=== PATIENT | female | born 1940 | race Caucasian/White ===

== ENCOUNTER 2016-12-04 10:27 | Inpatient (IN) | payer OTHER, MEDICARE ==
[~2016-12-04] VITALS: Ht 165.1 cm; Wt 117.5 kg
[~2016-12-04 10:27] MED LIST: ULTR50TA PO; WALKER STANDARD
--- NOTE | 2016-12-20 06:54 | HHI.DCPOC ---
Discharge Care Plan Diagnosis: (1) Status post total hip replacement, right (2) Osteoarthritis of right hip Your Health Problems Are: Difficulty with ADL Goals to Promote Your Health * To prevent worsening of your condition and complications * To maintain your health at the optimal level Directions to Meet Your Goals Take your medications as prescribed Follow your dietary instruction Follow activity as directed Keep your appointments as scheduled Take your immunizations and boosters as scheduled If your symptoms worsen call your PCP, if no PCP go to Urgent Care Center or Emergency Room Smoking is Dangerous to Your Health. Avoid second hand smoke Call the 24-hour hour crisis hotline for domestic abuse at Jens Aquino December 20, 2016 06:54
--- NOTE | 2016-12-20 06:55 | HHI.FF ---
Face to Face Verification Diagnosis: (1) Osteoarthritis of right hip (2) Status post total hip replacement, right Physical Therapy Gait training, Transfer training, bed to chair Hip: Total hip Right LE Weight Bearing: WB as tolerated Right LE Range of Motion: Active ROM Nursing Nursing: Art teaching, Dressing changes Dressing Changes: Daily dressing change I have seen patient Opal Kumar on 12/20/16. My clinical findings support the need for the requested home health care services because: Limited ability to care for self High risk of falls I certify that my clinical findings support that this patient is homebound because: Post-op weakness Unsteady gait/balance Jens qAuino December 20, 2016 06:55
[2016-12-20] MEDS ORDERED: POVIDONE IODINE 5% (ANTISEPSIS KIT) 4 APPLICATIONS EACH NARE PRN (07:45)
[2016-12-20] MEDS ORDERED: INSULIN HUMAN REGULAR 1,000 UNITS/10 ML VIAL SQ PRN (07:45)
[2016-12-20] MEDS ORDERED: METOPROLOL TARTRATE 25 MG TAB PO PRN (07:45)
[2016-12-20] MEDS ORDERED: SODIUM CHLORID 0.9% 500 ML IV PRN (07:45)
[2016-12-20] MEDS ORDERED: LACTATED RINGER'S 1000 ML IV PRN (07:45)
[2016-12-20] MEDS ORDERED: CHLORHEXIDINE GLUCONATE 2 % 1 PACK (2 CLOTHS) TOPICAL PRN (07:45)
[2016-12-20] MEDS ORDERED: GENTAMICIN SULFATE 80 MG/2 ML VIAL ONE (08:01)
[2016-12-20] MEDS ORDERED: CALCTAB23 PO (08:03)
[2016-12-20] MEDS ORDERED: MULT-135 PO (08:03)
[2016-12-20] MEDS ORDERED: TRAM50TA PO (08:03)
[2016-12-20 08:07] VITALS: BP 146/65; PULSE 78; RESP 20; TEMP 97.9; O2SAT 99
[2016-12-20] MEDS ORDERED: SULF1TAB23 PO (08:25)
[2016-12-20] MEDS ORDERED: VANCOMYCIN 1000 MG/NS 250 ML (for <70 kg) IV SCH ×2 (08:30)
[2016-12-20] MEDS ORDERED: EXPAREL PERI-ARTICULAR INJECTION (TOTAL VOL. 60 ML) P-ARTICULR SCH ×2 (08:30)
[2016-12-20] MEDS ORDERED: SODIUM CHLORIDE 0.9% IV SCH ×2 (08:30→13:00)
[2016-12-20] MEDS ORDERED: DEXAMETHASONE INJ 10 MG in SODIUM CHLORIDE 0.9% INJ 50 ML IV ONE (08:30)
[2016-12-20] MEDS ORDERED: TRANEXAMIC ACID IV SCH ×2 (08:30→13:00)
[2016-12-20] MEDS ORDERED: POVIDONE IODINE 7.5% SCRUB 118 ML BOTTLE TOPICAL SCH (08:30)
[2016-12-20] MEDS ORDERED: ceFAZolin 2 GM PREMIX 50 ML IV SCH (09:15)
[2016-12-20] MEDS ORDERED: fentaNYL CITRATE 250 MCG/5 ML AMP ONE (09:54)
[2016-12-20] MEDS ORDERED: MIDAZOLAM HCL 2 MG/2 ML VIAL ONE (09:54)
[2016-12-20] MEDS ORDERED: ACETAMINOPHEN 1000 MG/100 ML VIAL IV ONE (09:54)
[2016-12-20] MEDS ORDERED: FAMOTIDINE 20 MG/2 ML VIAL ONE (09:55)
[2016-12-20] MEDS ORDERED: ceFAZolin INJ 1,000 MG VIAL IV ONE ×2 (10:58→11:05)
[2016-12-20] MEDS ORDERED: NEOSTIGMINE 3 MG/3 ML SYR IV ONE (12:07)
[2016-12-20] MEDS ORDERED: ePHEDrine/NS 25 MG/5 ML SYR IV ONE (12:07)
[2016-12-20] MEDS ORDERED: PROPOFOL 200 MG/20 ML AMP IV ONE (12:07)
[2016-12-20] MEDS ORDERED: LACTATED RINGER'S 1000 ML INJ 1,000 ML IV ONE (12:08)
[2016-12-20] MEDS ORDERED: PHENYLEPH/NS 1000 MCG/10 ML SYR IV ONE (12:08)
[2016-12-20] MEDS ORDERED: ONDANSETRON HCL 4 MG/2 ML VIAL IV PUSH ONE (12:08)
--- NOTE | 2016-12-20 12:09 | PD.OP ---
cc: Gene Foster MD Operative Report Date of Surgery: December 20, 2016 Preoperative Diagnosis: Right hip severe osteoarthritis Postoperative Diagnosis: Same Procedure: Right total hip arthroplasty Anesthesia: Gen. Surgeon: Gene Foster Shactor Helper(s): TERRENCE De La Rosa The surgical procedure was assisted by my Advanced Registered Nurse Practitioner. My MIS DIRECTOR presence was necessary throughout this case for the manipulation and positioning of the surgical extremity. My MIS DIRECTOR was assisting me throughout the duration of this procedure. The skill set of an Advance Registered Nurse Practitioner was medically necessary to complete this procedure. During the surgical case, the surgical services tech was working at the back table and the Advance Registered Nurse Practitioner was directly assisting me. Operation and Findings: IMPLANT DESCRIPTION: 1. [place] Gription Cup, acetabular size 48. 2. [place] AltrX polyethylene, neutral. 4. [place] femoral stem size 11, no collar, high offset. 5. Femoral head/neck metal, 32, +1. ESTIMATED BLOOD LOSS: 350 cc. JUSTIFICATION FOR PROCEDURE: The patient has end-stage osteoarthritis to the hip. There is an attached conservative measures pathway form in the chart that describes the nonoperative measures that were undertaken prior to consideration of surgical management. The patient understood the risks and benefits of surgical management. See my office notes for further details. PROCEDURE: The patient was brought back to the operative theatre. Adequate anesthesia was obtained. The patient received intravenous vancomycin and Ancef. Note that the anesthesiologist gave a test dose of Ancef prior to giving the full dose. The patient was carefully placed on the operative table. The lower extremity was prepped and draped in the usual sterile fashion. Fluoroscopic images were obtained. We made a standard anterior incision over the hip. We dissected through the TFL fascia, exposing the anterior capsule. Arthrotomy was performed in a T-shaped fashion. The capsule was tagged with a #2 FiberWire. End-stage arthritis was identified. Osteotomy was performed through the femoral neck exposing the acetabulum. Remnants of the labrum were resected and osteophytes were removed. We sequentially reamed the acetabulum. We trialed the hip and placed the final cup into position. This was done under fluoroscopic guidance to obtain the appropriate inclination and anteversion. A manhole cover was placed into the acetabular component. We then placed the final polyethylene into position and confirmed that it was well seated. Capsular attachments on the calcar and the inner aspect of the greater trochanter were resected. On the proximal aspect of the femur we used a rongeur , box osteotome, canal finder, sequential broaches and lateralizing rasp. We calcar planed the proximal femur. Then thoroughly irrigated the wound. We trialed the hip with the appropriate size stem. We placed the final stem in to position and trialed again. The hip was stable while it was externally rotated 70 degrees when the leg was lowered to the floor. The final head was applied, and final fluoroscopic images were obtained. The wound was thoroughly irrigated again. Interarticular injection of liposomal bupivacaine was given. The capsule was closed with #2 FiberWire and #1 Vicryl. The deep fascia was closed with a #2 Stratafix, followed by 2-0 Vicryl in the skin and courtney. Postop plan is to weight-bear as tolerated. DVT prophylaxis will be performed with Nini, THONY lopez, early mobilization, and Lovenox followed by aspirin. Gene Foster MD December 20, 2016 12:09
[2016-12-20] MEDS ORDERED: ENOX40P SQ (12:10)
[2016-12-20] MEDS ORDERED: ASPI325T PO (12:10)
[2016-12-20] MEDS ORDERED: HYDR-3288 PO (12:10)
[2016-12-20] MEDS ORDERED: ALUMINUM/MAGNESIUM/SIMETH 30 ML CUP PO PRN (12:15)
[2016-12-20] MEDS ORDERED: MORPHINE SULFATE 4 MG/ML INJ IV PUSH PRN (12:15)
[2016-12-20] MEDS ORDERED: ZOLPIDEM TARTRATE 5 MG TAB PO PRN (12:15)
[2016-12-20] MEDS ORDERED: SODIUM CHLORIDE 0.9% FLUSH 5 ML FLUSH IVF PRN (12:15)
[2016-12-20] MEDS ORDERED: diphenhydrAMINE HCL 50 MG/ML VIAL IV PRN (12:15)
[2016-12-20] MEDS ORDERED: ACETAMINOPHEN/HYDROcodone 325 MG/7.5 MG TAB PO PRN (12:15)
[2016-12-20] MEDS ORDERED: BISACODYL 10 MG SUPP RECTAL PRN (12:15)
[2016-12-20] MEDS ORDERED: ONDANSETRON HCL 4 MG/2 ML VIAL IVP PRN (12:15)
[2016-12-20] MEDS ORDERED: Post-op Orders (for Pharmacy) MISC XX ONE (12:30)
--- NOTE | 2016-12-20 12:31 | RADRPT ---
EXAM DATE/TIME: 12/20/2016 10:46 [facility] COMPARISON: No previous studies available for comparison. INDICATIONS : Post-op total right hip arthroplasty. MEDICAL HISTORY : None. SURGICAL HISTORY : None. ENCOUNTER: Initial ACUITY: 1 day PAIN SCORE: Non-responsive. LOCATION: Right hip. FINDINGS: 3 spot intraoperative fluoroscopic views of the right hip demonstrate a total hip arthroplasty. Femor al and acetabular components appear well seated. CONCLUSION: Postoperative changes right hip. Zay Epstein MD on December 20, 2016 at 12:29 Board Certified Radiologist. This report was verified electronically.
[2016-12-20] MEDS ORDERED: *morphine SULFATE 8 MG/ML PERIprocedure ONLY ONE ×3 (12:45→13:06)
[2016-12-20] MEDS: SODIUM CHLOR 0.9% 1000 ML INJ 1,000 ML IV SCH ×2 (13:00→22:05)
[2016-12-20] MEDS ORDERED: *HYDROmorphone PF 1 MG VIAL PERIprocedural Use ONLY ONE ×2 (13:15→13:25)
--- NOTE | 2016-12-20 13:32 | RADRPT ---
EXAM DATE/TIME: 12/20/2016 12:46 [facility] COMPARISON: HIP RIGHT (AP&LAT 2/3VWS) WO AP PELVIS, December 20, 2016, 10:46. INDICATIONS : Post op right hip replacement. MEDICAL HISTORY : None. SURGICAL HISTORY : None. ENCOUNTER: Initial ACUITY: 1 day PAIN SCORE: Non-responsive. LOCATION: Right hip. FINDINGS: The patient is status post right total hip arthroplasty. The femoral and acetabular components appear well-seated. Skin courtney are present along the right hip. Minimal subcutaneous emphysema is seen. N o fractures are identified. Mild narrowing of the left hip. CONCLUSION: Postop right hip arthroplasty. Zay Epstein MD on December 20, 2016 at 13:29 Board Certified Radiologist. This report was verified electronically.
[2016-12-20] MEDS: NALOXONE HCL 0.4 MG/ML AMP IV PRN ×2 (13:55→14:24)
[2016-12-20 15:03] LABS: HEMATOCRIT 32.8 % (35.0-46.0); REVIEW FLAG FINAL
[2016-12-20] MEDS ORDERED: LACTATED RINGER'S 1000 ML INJ 500 ML IV ONE (15:15)
--- NOTE | 2016-12-20 17:44 | PD.CONS ---
HPI Service [facility] Hospitalists Consult Requested By Dr. Gene Foster Reason for Consult Medical management Primary Care Physician Meme Marte Do, MD Diagnoses: (1) Osteoarthritis of right hip (2) Status post total hip replacement, right History of Present Illness Mrs. Kumar is a 76-year-old female with a known medical history of asthma, chronic obstructive pulmonary disease, obstructive sleep apnea who is status post total right hip arthroplasty today by Dr. Foster. Hospitalist team has been consulted for medical management. Patient seen post operatively in PACU. Per medical records and MECHANICAL ENGINEERING TECHNOLOGIST, patient has had a difficult time in the past with hypotension with anesthesia. Supposedly patient had arrived to PACU in severe pain and was given ordered narcotics became unarousable and then given Narcan. Patient currently awake, alert and oriented x 3 and following all commands in no apparent distress. States that pain is relatively controlled. Does admit to some dizziness since waking up from anesthesia. At this time patient BP is relatively stable with systolic 100's. O2 saturations on 3 L NC 98 %. Per MECHANICAL ENGINEERING TECHNOLOGIST, she has noticed some decrease in HR to 47 bpm while patient is sleeping but increases upon awakening and patient asymptomatic. Patient does admit to a history of obstructive sleep apnea but is noncompliant with home CPAP. Denies any recent fever, chills, cough, shortness of breath, chest pain, palpitations, abdominal pain, n/v or dysuria. Review of Systems Constitutional: COMPLAINS OF: Dizziness Except as stated in HPI: all other systems reviewed are Neg Past Family Social History Allergies: Coded Allergies: Penicillin (Verified Allergy, Severe, rash, 12/20/16) Demerol (Verified Adverse Reaction, Severe, NAUSEA, 12/20/16) Past Medical History Asthma Chronic Obstructive pulmonary disease Obstructive sleep apnea, noncompliant with CPAP at home Past Surgical History Tubal ligation Left knee replacement Hysterectomy Reported Medications Active Aspirin 325 Mg Tab 325 Mg PO DAILY Start Aspirin after Lovenox is completed. Lovenox Inj (Enoxaparin Sodium) 40 Mg/0.4 Ml Syr 40 Mg SQ DAILY Start Aspirin after Lovenox is completed. [place] (Hydrocodone-Acetaminophen) 7.5-325 mg Tab 1-2 Tab PO Q4H PRN Reported Sulfamethoxazole-Trimethoprim 800-160 Mg Tab 1 Tab PO BID Calcium 500 + D (Calcium Carbonate-Vitamin D) 500-125 Mg-Unit Tab 1 Tab PO BID Multi Vitamin (Multiple Vitamin) 1 Tab Tab 1 Tab PO DAILY Tramadol (Tramadol HCl) 50 Mg Tab 50 Mg PO Q4H PRN Active Ordered Medications Current Medications Medications (Trade) Dose Ordered Sig/Salomon Route Start Time Stop Time Status Last Admin Lactated Ringer's 1,000 ml @ 30 mls/hr Q24H PRN IV 12/20/16 07:45 12/23/16 07:44 12/20/16 08:00 (NS 500 ml Inj) 500 ml @ 30 mls/hr [id number] PRN IV 12/20/16 07:45 12/23/16 07:44 (Betadine 7.5% Scrub) 1 applic ONCE TOPICAL 12/20/16 08:30 12/23/16 08:29 Trimethoprim/ Sulfamethoxazole 1 tab 1 tab BID PO 12/20/16 21:00 (NS 1000 ml Inj) 1,000 ml @ 100 mls/hr Q10H IV 12/20/16 12:05 (NS Flush) 2 ml UNSCH PRN IVF 12/20/16 12:15 IV Flush 2 ml 2 ml BID IVF 12/20/16 21:00 (Ancef Inj/NS Inj) 100 ml @ 200 mls/hr Q6H IV 12/20/16 17:00 12/21/16 05:29 (Decadron Inj) 10 mg ONCE ONCE IV 12/21/16 07:45 12/21/16 07:46 (Lovenox Inj) 40 mg Q24H SQ 12/21/16 11:00 12/30/16 11:01 ([place] 7.5-325 Mg) 1 tab Q4H PRN PO 12/20/16 12:15 Acetaminophen/ Hydrocodone Bitart 2 tab 2 tab Q4H PRN PO 12/20/16 12:15 (Cyklokapron Inj/ NS Inj) 108.06 ml @ 200 mls/ hr UNSCH IV 12/20/16 13:00 12/20/16 19:00 (Theragran M Tab) 1 tab BID PO 12/21/16 21:00 02/19/17 20:59 (Zofran Inj) 4 mg Q6H PRN IVP 12/20/16 12:15 (Colace) 100 mg BID PO 12/21/16 21:00 (Mag-Al Plus Susp Liq) 30 ml Q6H PRN PO 12/20/16 12:15 (Ambien) 5 mg HS PRN PO 12/20/16 12:15 (Dulcolax Supp) 10 mg DAILY PRN RECTAL 12/20/16 12:15 (Milk Of Magnesia Liq) 30 ml DAILY PRN PO 12/20/16 12:15 (Narcan Inj) 0.4 mg UNSCH PRN IV 12/20/16 12:15 (Benadryl Inj) 25 mg Q6H PRN IV 12/20/16 12:15 (Morphine Inj) 2 mg Q3H PRN IV PUSH 12/20/16 12:15 Family History Paternal medical history significant for emphysema with tobacco history. Maternal medical history significant for diabetes mellitus. Social History Patient denies any current tobacco use, does admit to a 20 year smoking history but quit many years ago. Denies any alcohol use. Denies any illicit drug use. Physical Exam Vital Signs Vital Signs Date Time Temp Pulse Resp B/P Pulse Ox O2 Delivery O2 Flow Rate FiO2 12/20/16 14:00 71 15 93/46 99 Nasal Cannula 3 12/20/16 13:55 57 12 99/43 99 Nasal Cannula 3 12/20/16 13:50 61 12 94/42 99 Nasal Cannula 3 12/20/16 13:48 51 14 79/37 100 Nasal Cannula 3 12/20/16 13:45 72 14 84/40 99 Nasal Cannula 3 12/20/16 13:30 60 15 110/49 100 Nasal Cannula 3 12/20/16 13:15 57 15 130/59 100 Nasal Cannula 3 12/20/16 13:00 77 15 128/63 100 Nasal Cannula 3 12/20/16 12:45 73 15 127/59 100 Nasal Cannula 3 12/20/16 12:37 96.9 75 15 129/60 100 Nasal Cannula 3 12/20/16 08:07 97.9 78 20 146/65 99 Physical Exam GENERAL: Well-nourished, well-developed patient, in no apparent distress. SKIN: No rashes, ecchymoses or lesions. Warm and dry. Post op dressing to left hip clean, dry, intact. No erythema noted around area. Pulses present. HEENT: Atraumatic. Normocephalic. Pupils equal round and reactive. Extraocular motions intact. No scleral icterus. No injection or drainage. Nose without bleeding Throat without erythema Airway patent. NECK: Trachea midline. No JVD or lymphadenopathy. Supple. CARDIOVASCULAR: Regular rate and rhythm without murmurs, gallops, or rubs. RESPIRATORY: Clear to auscultation. Breath sounds equal bilaterally. No wheezes , rales, or rhonchi. GASTROINTESTINAL: Abdomen soft, non-tender, nondistended. No guarding. MUSCULOSKELETAL: Left hip with dressing c/d/i. Extremities without clubbing, cyanosis, or edema. No joint tenderness, effusion, or edema noted. No calf tenderness. Negative Homans sign bilaterally. NEUROLOGICAL: Awake and alert. Cranial nerves II through XII intact. Motor and sensory grossly within normal limits. Normal speech. Laboratory Laboratory Tests Test 12/20/16 12/20/16 07:55 14:40 Blood Type A POSITIVE Antibody Screen NEGATIVE Hemoglobin 10.7 Hematocrit 32.8 Result Diagram: 12/20/16 1440 Imaging Last Impressions Hip and Pelvis X-Ray 12/20/16 1205 Signed Impressions: Service Date/Time: Tuesday, December 20, 2016 12:46 - CONCLUSION: Postop right hip arthroplasty. Zay Epstein MD Hip X-Ray 12/20/16 0000 Signed Impressions: Service Date/Time: Tuesday, December 20, 2016 10:46 - CONCLUSION: Postoperative changes right hip. Zay Epstein MD Assessment and Plan Assessment and Plan Mrs. Kumar is a 76-year-old female with a known medical history of asthma, chronic obstructive pulmonary disease, obstructive sleep apnea who is status post total right hip arthroplasty today by Dr. Foster. Hospitalist team has been consulted for medical management. OA of left hip Hypotension, immediately post surgical, 2/2 IV pain meds. Received total of 1.5 L NS. VS stable at this time. Resolved with IVF. Monitor bP . Keep MAP> 65. Acute encephalopathy 2/2 use of narcotic pain meds, received narcan. Resolved with narcan. Close observation wile on narcotic . DC IV pain meds. - Status post left total hip arthroplasty on 12/20/[address] Foster ortho - Control pain. Patient very sensitive to narcotics. Nursing staff please be advised. [place] available PO PRN per pain scale. Monitor closely. Will hold IV pain medication for now due to sensitivity, her BP dropped after IV pain meds, and she was noted altered mental status. She did receive 1.5 L NS, BP currently normal, and MAP of 70. Keep MAP > 65. She also received narcan while in PACU. She appears stable at this time. Can be transferred to ortho floor. She is awake and alert and oriented x4 at this time. Monitor VS closely. - Antiemetics, laxative/stool softeners as need. - Encourage PO intake as tolerated. - Encourage use of incentive spirometer. - Dressing change per surgery recommendations. Dizziness 2/2 hypotension / narcotic use IV - Monitor closely. No signs or symptoms of bleedings. H&H 10.7. CBC in am. - Control BP. Status post 1.5 L fluids post operatively. Continue IVF NS 100 ml/hr. - Adequate amount of clear yellow urine reported post op. Monitor UOP. Obstructive sleep apnea - Asked patient to have family bring in machine from home while hospitalized , until then will request CPAP machine while patient here, currently sattign well on NC.Monitor VS. Keep O2 sat > 92%. Other chronic medical problems include chronic obstructive pulmonary disease and asthma which are currently stable. Home medications restarted as indicated. DVT Prophylaxis: Lovenox 40 mg sq daily. Thank you for this consultation. We will follow with you. Written by Yuly Marley, acting as scribe for Dr. Parsons on 12/20/16 at 17:43. This note was transcribed by scribe Yuly OCONNOR. I, Dr. Earnestine Parsons personally performed the history, physical exam, and medical decision making; and confirmed the accuracy of the information in the transcribed note. Authenticated by Dr. Earnestine Parsons on 12/20/16 at 17:43. Yuly Marley December 20, 2016 17:44 Earnestine Parsons MD December 20, 2016 21:23
[2016-12-20] MEDS ORDERED: *ONDANSETRON 4 MG VIAL PERIprocedural Use ONLY ONE (17:46)
[2016-12-20 18:35] VITALS: BP 98/47; PULSE 53; RESP 18; TEMP 95.4; O2SAT 100
[2016-12-20 20:20] VITALS: BP 103/53; PULSE 54; RESP 16; TEMP 95.7; O2SAT 99
[2016-12-20] MEDS: SODIUM CHLORIDE 0.9% FLUSH 5 ML FLUSH IVF SCH (20:44)
[2016-12-20] MEDS: SULFAMETHOXAZOLE-TRIMETHOPRIM DS 800-160 MG TAB PO SCH (20:51)
[2016-12-20] MEDS ORDERED: SODIUM CHLOR 0.9% 1000 ML INJ 1,000 ML IV ONE (21:30)
[2016-12-20] MEDS: ACETAMINOPHEN/HYDROcodone 325 MG/7.5 MG TAB PO PRN (23:02)
[2016-12-21] VITALS (10 sets, daily range): BP systolic 90–119; BP diastolic 47–83; PULSE 56–80; RESP 16–18; TEMP 95.8–98.5; O2SAT 92–100
[2016-12-21] MEDS: SODIUM CHLOR 0.9% 1000 ML INJ 1,000 ML IV SCH ×2 (04:15→16:52)
[2016-12-21 06:25] LABS: HEMATOCRIT 28.3 % (35.0-46.0); MEAN CELL VOLUME 91.1 FL (80.0-100.0); MEAN CORPUSCULAR HEMOGLOBIN 30.2 PG (27.0-34.0); MEAN CORPUSCULAR HGB CONC 33.2 % (32.0-36.0); PLATELET COUNT 121 TH/MM3 (150-450); RED CELL DISTRIBUTION WIDTH 13.7 % (11.6-17.2); REVIEW FLAG FINAL; WHITE BLOOD COUNT 7.5 TH/MM3 (4.0-11.0)
[2016-12-21 06:38] LABS: BICARBONATE 22.8 MEQ/L (21.0-32.0); POTASSIUM 4.7 MEQ/L (3.5-5.1)
[2016-12-21 06:57] LABS: CALCIUM-PROTEIN CORRECTED 8.7 MG/DL (8.5-10.1)
[2016-12-21] MEDS ORDERED: DEXAMETHASONE SOD PHOS 20 MG/5 ML VIAL IV ONE (07:45)
[2016-12-21] MEDS: SODIUM CHLORIDE 0.9% FLUSH 5 ML FLUSH IVF SCH ×2 (08:01→21:10)
[2016-12-21] MEDS: SULFAMETHOXAZOLE-TRIMETHOPRIM DS 800-160 MG TAB PO SCH ×2 (08:01→21:09)
[2016-12-21] MEDS: ENOXAPARIN SODIUM 40 MG/0.4 ML SYRINGE SQ SCH (11:31)
--- NOTE | 2016-12-21 11:55 | PD.ORT.PN ---
Subjective Post Op Day #: 1 Subjective Remarks The patient is OOB in chair with mild to moderate right hip pain. Patient is voiding and is ambulatory. Objective Vitals Vital Signs Date Time Temp Pulse Resp B/P Pulse Ox O2 Delivery O2 Flow Rate FiO2 12/21/16 08:00 97.7 61 18 97 98/55 12/21/16 05:30 98.4 12/21/16 04:20 96.8 73 16 103/51 98 12/21/16 04:20 96.2 12/21/16 01:35 96.1 90/47 12/21/16 00:20 95.8 56 16 97/50 100 12/21/16 00:03 18 12/20/16 20:20 95.7 54 16 103/53 99 12/20/16 18:35 95.4 53 18 98/47 100 12/20/16 18:30 96.0 53 15 104/52 97 Nasal Cannula 3 12/20/16 18:00 53 17 108/58 98 Nasal Cannula 3 12/20/16 17:30 53 15 98/62 98 Nasal Cannula 3 12/20/16 17:00 53 15 107/58 97 Nasal Cannula 3 12/20/16 16:30 54 17 99/54 97 Nasal Cannula 3 12/20/16 16:00 55 17 103/58 97 Nasal Cannula 3 12/20/16 15:30 59 17 94/50 97 Nasal Cannula 3 12/20/16 15:00 54 15 98/58 97 Nasal Cannula 3 12/20/16 14:45 54 15 100/64 100 Nasal Cannula 3 12/20/16 14:30 73 15 90/53 100 Nasal Cannula 3 12/20/16 14:15 97.8 55 15 98/54 100 Nasal Cannula 3 12/20/16 14:00 71 15 93/46 99 Nasal Cannula 3 12/20/16 13:55 57 12 99/43 99 Nasal Cannula 3 12/20/16 13:50 61 12 94/42 99 Nasal Cannula 3 12/20/16 13:48 51 14 79/37 100 Nasal Cannula 3 12/20/16 13:45 72 14 84/40 99 Nasal Cannula 3 12/20/16 13:30 60 15 110/49 100 Nasal Cannula 3 12/20/16 13:15 57 15 130/59 100 Nasal Cannula 3 12/20/16 13:00 77 15 128/63 100 Nasal Cannula 3 12/20/16 12:45 73 15 127/59 100 Nasal Cannula 3 12/20/16 12:37 96.9 75 15 129/60 100 Nasal Cannula 3 I/O 12/20/16 12/20/16 12/20/16 12/21/16 12/21/16 12/21/16 07:00 15:00 23:00 07:00 15:00 23:00 Intake Total 1200 ml 1740 ml 920 ml Output Total 600 ml 475 ml 300 ml 150 ml Balance 600 ml 1265 ml 620 ml -150 ml Intake Oral 240 ml 120 ml IV Total 1500 ml 800 ml Other 1200 ml Output Urine Total 300 ml 475 ml 300 ml 150 ml Estimated Blood Loss 300 ml # Bowel Movements 0 0 Result Diagram: 12/21/16 0537 12/21/16 0537 Imaging Last 24 hours Impressions Hip and Pelvis X-Ray 12/20/16 1205 Signed Impressions: Service Date/Time: Tuesday, December 20, 2016 12:46 - CONCLUSION: Postop right hip arthroplasty. Zay Epstein MD Procedures Right JUAN C Objective Remarks The patient's dressings changed with scant serosanguineous drainage. Incision well approximated with surgical clips intact. No redness or s/s of infection. EHL/TA/G intact. 2+ pedal pulse. Calf is soft and nontender. Minimal swelling. + SILT. Assessment & Plan Ortho Post Op Day #: 1 Problem List: Assessment and Plan POD #1: Right JUAN C 1. WBAT RLE 2. Lovenox followed by ASA for DVT prophylaxis 3. Ice to the right hip PRN 4. Anticipatory discharge home with home health today or Sunday Jens Aquino December 21, 2016 11:55
[2016-12-21] MEDS: ACETAMINOPHEN/HYDROcodone 325 MG/7.5 MG TAB PO PRN ×2 (13:31→21:09)
--- NOTE | 2016-12-21 13:57 | HHI.PR ---
Subjective Remarks Follow-up total hip arthroplasty and anemia. Patient is out of bed complaining of tolerable hip pain. 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 Discussed with RN. Objective Vitals Vital Signs Date Time Temp Pulse Resp B/P Pulse Ox O2 Delivery O2 Flow Rate FiO2 12/21/16 08:00 97.7 61 18 97 98/55 12/21/16 05:30 98.4 12/21/16 04:20 96.8 73 16 103/51 98 12/21/16 04:20 96.2 12/21/16 01:35 96.1 90/47 12/21/16 00:20 95.8 56 16 97/50 100 12/21/16 00:03 18 12/20/16 20:20 95.7 54 16 103/53 99 12/20/16 18:35 95.4 53 18 98/47 100 12/20/16 18:30 96.0 53 15 104/52 97 Nasal Cannula 3 12/20/16 18:00 53 17 108/58 98 Nasal Cannula 3 12/20/16 17:30 53 15 98/62 98 Nasal Cannula 3 12/20/16 17:00 53 15 107/58 97 Nasal Cannula 3 12/20/16 16:30 54 17 99/54 97 Nasal Cannula 3 12/20/16 16:00 55 17 103/58 97 Nasal Cannula 3 12/20/16 15:30 59 17 94/50 97 Nasal Cannula 3 12/20/16 15:00 54 15 98/58 97 Nasal Cannula 3 12/20/16 14:45 54 15 100/64 100 Nasal Cannula 3 12/20/16 14:30 73 15 90/53 100 Nasal Cannula 3 12/20/16 14:15 97.8 55 15 98/54 100 Nasal Cannula 3 12/20/16 14:00 71 15 93/46 99 Nasal Cannula 3 I/O 12/20/16 12/20/16 12/20/16 12/21/16 12/21/16 12/21/16 07:00 15:00 23:00 07:00 15:00 23:00 Intake Total 1200 ml 1740 ml 920 ml Output Total 600 ml 475 ml 300 ml 150 ml Balance 600 ml 1265 ml 620 ml -150 ml Intake Oral 240 ml 120 ml IV Total 1500 ml 800 ml Other 1200 ml Output Urine Total 300 ml 475 ml 300 ml 150 ml Estimated Blood Loss 300 ml # Bowel Movements 0 0 Result Diagram: 12/21/16 0537 12/21/16 0537 Imaging Last Impressions Hip and Pelvis X-Ray 12/20/16 1205 Signed Impressions: Service Date/Time: Tuesday, December 20, 2016 12:46 - CONCLUSION: Postop right hip arthroplasty. Zay Epstein MD Hip X-Ray 12/20/16 0000 Signed Impressions: Service Date/Time: Tuesday, December 20, 2016 10:46 - CONCLUSION: Postoperative changes right hip. Zay Epstein MD Objective Remarks GENERAL: Well-nourished, well-developed patient, in no apparent distress. SKIN: No rashes, ecchymoses or lesions. Warm and dry. Post op dressing to hip clean, dry, intact. No erythema noted around area. Pulses present. HEENT: Atraumatic. Normocephalic. Pupils equal round and reactive. Extraocular motions intact. No scleral icterus. No injection or drainage. Nose without bleeding Throat without erythema Airway patent. NECK: Trachea midline. No JVD or lymphadenopathy. Supple. CARDIOVASCULAR: Regular rate and rhythm without murmurs, gallops, or rubs. RESPIRATORY: Clear to auscultation. Breath sounds equal bilaterally. No wheezes , rales, or rhonchi. GASTROINTESTINAL: Abdomen soft, non-tender, nondistended. No guarding. MUSCULOSKELETAL: Left hip with dressing c/d/i. Extremities without clubbing, cyanosis, or edema. No joint tenderness, effusion, or edema noted. No calf tenderness. Negative Homans sign bilaterally. NEUROLOGICAL: Awake and alert. Cranial nerves II through XII intact. Motor and sensory grossly within normal limits. Normal speech. A/P Problem List: (1) Osteoarthritis of right hip ICD Code: M16.11 Status: Acute (2) Status post total hip replacement, right ICD Code: Z96.641 Status: Acute Assessment and Plan Mrs. Kumar is a 76-year-old female with a known medical history of asthma, chronic obstructive pulmonary disease, obstructive sleep apnea who is status post total right hip arthroplasty today by Dr. Foster. Hospitalist team has been consulted for medical management. OA of left hip Hypotension, immediately post surgical, 2/2 IV pain meds. Received total of 1.5 L NS. VS stable at this time. Resolved with IVF. Monitor bP . Keep MAP> 65. Hx indicated Acute encephalopathy 2/2 use of narcotic pain meds, received narcan. Resolved with narcan. Close observation wile on narcotic . DC IV pain meds. - Status post left total hip arthroplasty on 12/20/[address] Foster ortho - Control pain. Patient very sensitive to narcotics. Nursing staff advised. [place] available PO PRN per pain scale which she is tolerating. Monitor closely. Will hold IV pain medication for now due to sensitivity, her BP dropped after IV pain meds, and she was noted altered mental status. She did receive 1.5 L NS , BP currently normal, and MAP of 70. Keep MAP > 65. She also received narcan while in PACU. She appears stable at this time. She is awake and alert and oriented x4 at this time. Monitor VS closely. - Antiemetics, laxative/stool softeners as need. - Encourage PO intake as tolerated. - Encourage use of incentive spirometer. - Dressing change per surgery recommendations. Dizziness 2/2 hypotension / narcotic use IV - Monitor closely. No signs or symptoms of bleedings. H&H 9.4. CBC in am. - Control BP. Status post 1.5 L fluids post operatively. Continue IVF NS 100 ml/hr. - Adequate amount of clear yellow urine reported post op. Monitor UOP. Anemia secondary to blood loss. Repeat CBC in the morning Mild thrombocytopenia likely secondary to dilution. Repeat. Currently the morning Hyperglycemia. Obtain A1c. Obstructive sleep apnea -Stable continue CPAP Keep O2 sat > 92%. Other chronic medical problems include chronic obstructive pulmonary disease and asthma which are currently stable. Home medications restarted as indicated. DVT Prophylaxis: Lovenox 40 mg sq daily. Discharge Planning Discharge per orthopedic surgery Zak Landin MD December 21, 2016 13:57 - Antiemetics, laxative/stool softeners as need. - Encourage PO intake as tolerated. - Encourage use of incentive spirometer. - Dressing change per surgery recommendations. Dizziness 2/2 hypotension / narcotic use IV - Monitor closely. No signs or symptoms of bleedings. H&H 10.7. CBC in am. - Control BP. Status post 1.5 L fluids post operatively. Continue IVF NS 100 ml/hr. - Adequate amount of clear yellow urine reported post op. Monitor UOP. Obstructive sleep apnea - Asked patient to have family bring in machine from home while hospitalized , until then will request CPAP machine while patient here, currently sattign well on NC.Monitor VS. Keep O2 sat > 92%. Other chronic medical problems include chronic obstructive pulmonary disease and asthma which are currently stable. Home medications restarted as indicated. DVT Prophylaxis: Lovenox 40 mg sq daily. A/P Problem List: (1) Osteoarthritis of right hip ICD Code: M16.11 Status: Acute (2) Status post total hip replacement, right ICD Code: Z96.641 Status: Acute Zak Landin MD December 21, 2016 13:57
[2016-12-21] MEDS: MAGNESIUM HYDROXIDE SUSP 30 ML CUP PO PRN (16:43)
[2016-12-21 21:06] LABS: HEMOGLOBIN A1b 0.7 %; HEMOGLOBIN Ao 86.3 %; HEMOGLOBIN F 0.9 %; HEMOGLOBIN LA1C 1.9 %; HEMOGLOBIN P3 4.9 %
[2016-12-21] MEDS: DOCUSATE SODIUM 100 MG CAP PO SCH (21:09)
[2016-12-21] MEDS: MULTIVITAMINS/MINERALS THERAPEUTIC TAB PO SCH (21:09)
[2016-12-22] VITALS: BP 105/53; PULSE 63; RESP 17; TEMP 98.2; O2SAT 92
[2016-12-22] MEDS: SODIUM CHLOR 0.9% 1000 ML INJ 1,000 ML IV SCH ×2 (00:52→14:05)
[2016-12-22 04:00] VITALS: BP 102/50; PULSE 65; RESP 17; TEMP 97.5; O2SAT 92
[2016-12-22] MEDS: ACETAMINOPHEN/HYDROcodone 325 MG/7.5 MG TAB PO PRN ×3 (05:01→16:22)
[2016-12-22 08:00] VITALS: BP 122/50; PULSE 67; RESP 18; TEMP 97.4; O2SAT 94
[2016-12-22 08:03] LABS: HEMATOCRIT 27.7 % (35.0-46.0); MEAN CELL VOLUME 90.9 FL (80.0-100.0); MEAN CORPUSCULAR HEMOGLOBIN 30.4 PG (27.0-34.0); MEAN CORPUSCULAR HGB CONC 33.4 % (32.0-36.0); PLATELET COUNT 110 TH/MM3 (150-450); RED BLOOD COUNT 3.05 MIL/MM3 (4.00-5.30); RED CELL DISTRIBUTION WIDTH 13.6 % (11.6-17.2); REVIEW FLAG FINAL; WHITE BLOOD COUNT 6.3 TH/MM3 (4.0-11.0)
[2016-12-22] MEDS: DOCUSATE SODIUM 100 MG CAP PO SCH (08:31)
[2016-12-22] MEDS: SULFAMETHOXAZOLE-TRIMETHOPRIM DS 800-160 MG TAB PO SCH (08:31)
[2016-12-22] MEDS: SODIUM CHLORIDE 0.9% FLUSH 5 ML FLUSH IVF SCH (08:32)
[2016-12-22] MEDS: MAGNESIUM HYDROXIDE SUSP 30 ML CUP PO PRN (08:32)
[2016-12-22] MEDS: MULTIVITAMINS/MINERALS THERAPEUTIC TAB PO SCH (08:32)
[2016-12-22] MEDS: ENOXAPARIN SODIUM 40 MG/0.4 ML SYRINGE SQ SCH (10:00)
[2016-12-22 12:00] VITALS: BP 117/51; PULSE 77; RESP 18; TEMP 97.5; O2SAT 93
[2016-12-22] MEDS ORDERED: LACTULOSE SYRUP 20 GM/30 ML CUP PO PRN (12:00)
[2016-12-22 12:15] VITALS: O2SAT 94
--- NOTE | 2016-12-22 14:43 | HHI.DS ---
Discharge Summary Admission Date December 20, 2016 at 06:37 Discharge Date: December 22, 2016 Admitting Diagnosis OA right hip status post (1) Osteoarthritis of right hip ICD Code: M16.11 (2) Status post total hip replacement, right ICD Code: Z96.641 Procedures right total hip replacement Brief History - From Admission Mrs. Kumar is a 76-year-old female with a known medical history of asthma, chronic obstructive pulmonary disease, obstructive sleep apnea who is status post total right hip arthroplasty today by Dr. Foster. Hospitalist team has been consulted for medical management. Patient seen post operatively in PACU. 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 Supposedly patient had arrived to PACU in severe pain and was given ordered narcotics became unarousable and then given Narcan. Patient currently awake, alert and oriented x 3 and following all commands in no apparent distress. States that pain is relatively controlled. Does admit to some dizziness since waking up from anesthesia. At this time patient BP is relatively stable with systolic 100's. O2 saturations on 3 L NC 98 %. 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 Patient does admit to a history of obstructive sleep apnea but is noncompliant with home CPAP. Denies any recent fever, chills, cough, shortness of breath, chest pain, palpitations, abdominal pain, n/v or dysuria. CBC/BMP: 12/22/16 0659 12/21/16 0537 Significant Findings Laboratory Tests Test 12/20/16 12/21/16 12/22/16 14:40 05:37 06:59 Hemoglobin 10.7 GM/DL 9.4 GM/DL 9.3 GM/DL (11.6-15.3) (11.6-15.3) (11.6-15.3) Hematocrit 32.8 % 28.3 % 27.7 % (35.0-46.0) (35.0-46.0) (35.0-46.0) Red Blood Count 3.10 MIL/MM3 3.05 MIL/MM3 (4.00-5.30) (4.00-5.30) Platelet Count 121 TH/MM3 110 TH/MM3 (150-450) (150-450) Chloride Level 112 MEQ/L (98-107) Random Glucose 108 MG/DL (74-106) Calcium Level 7.4 MG/DL (8.5-10.1) Total Protein 4.8 GM/DL (6.4-8.2) Imaging Last Impressions Hip and Pelvis X-Ray 12/20/16 1205 Signed Impressions: Service Date/Time: Tuesday, December 20, 2016 12:46 - CONCLUSION: Postop right hip arthroplasty. Zay Epstein MD Hip X-Ray 12/20/16 0000 Signed Impressions: Service Date/Time: Tuesday, December 20, 2016 10:46 - CONCLUSION: Postoperative changes right hip. Zay Epstein MD PE at Discharge GENERAL: Well-nourished, well-developed patient, in no apparent distress. SKIN: No rashes, ecchymoses or lesions. Warm and dry. Post op dressing to hip clean, dry, intact. No erythema noted around area. Pulses present. HEENT: Atraumatic. Normocephalic. Pupils equal round and reactive. Extraocular motions intact. No scleral icterus. No injection or drainage. Nose without bleeding Throat without erythema Airway patent. NECK: Trachea midline. No JVD or lymphadenopathy. Supple. CARDIOVASCULAR: Regular rate and rhythm without murmurs, gallops, or rubs. RESPIRATORY: Clear to auscultation. Breath sounds equal bilaterally. No wheezes , rales, or rhonchi. GASTROINTESTINAL: Abdomen soft, non-tender, nondistended. No guarding. MUSCULOSKELETAL: Left hip with dressing c/d/i. Extremities without clubbing, cyanosis, or edema. No joint tenderness, effusion, or edema noted. No calf tenderness. Negative Homans sign bilaterally. NEUROLOGICAL: Awake and alert. Cranial nerves II through XII intact. Motor and sensory grossly within normal limits. Normal speech. Pt update on day of discharge Follow up right total hip replacement. Patient seen and examined. Doing well. Pain controlled. Has been out of bed walking with walker. Still has had no BM since surgery, patient does state she has had gas. Given laxatives and awaiting effect. Discharge on hold until patient has BM. Denies any recent fever, chills , cough, shortness of breath, chest pain, palpitations, abdominal pain, n/v, dysuria. Hospital Course Mrs. Kumar is a 76-year-old female with a known medical history of asthma, chronic obstructive pulmonary disease, obstructive sleep apnea who is status post total right hip arthroplasty today by Dr. Foster. Hospitalist team was consulted for medical management. Primary diagnosis OA of left hip. Immediately hypotensive post surgical, 2/2 IV pain medications. Received total of 1.5 L NS. Resolved with IVF. Acute encephalopathy 2/2 use of narcotic pain medications, received narcan. Resolved with narcan. DC IV pain meds. [place] available PO PRN per pain scale. Status post left total hip arthroplasty on 12/20/[address] Foster. Antiemetics, laxative/stool softeners as needed. Encouraged use of incentive spirometer. Dressing change per surgery recommendations. Dizziness 2/2 hypotension / narcotic use IV. No signs or symptoms of bleedings. H&H 10.7. Adequate amount of clear yellow urine reported post op. Monitor urine output. Obstructive sleep apnea, asked patient to have family bring in machine from home while hospitalized. Anemia secondary to blood loss. Hemoglobin 9.3 and Hematocrit 27.7. Recommend repeat CBC when follow up with PCP outpatient post discharge. Other chronic medical problems include chronic obstructive pulmonary disease and asthma which are currently stable. Home medications restarted as indicated. DVT Prophylaxis Lovenox 40 mg sq daily followed by [facility] Ice to the right hip PRN Advised to follow up with orthopedics outpatient. Pt Condition on Discharge: Stable Discharge Disposition: Disch w/ Home Health Serv Discharge Time: > 30 minutes Discharge Instructions DIET: Follow Instructions for: As Tolerated, No Restrictions Speech Therapy-Diet Recommends: Regular Activities you can perform: Weight Bearing as Araseli Follow up Referrals: Orthopedics with Gene Foster MD New Medications: Aspirin (Aspirin) 325 Mg Tab 325 MG PO DAILY Start Aspirin after Lovenox is completed. Prevent Blood Clot # 30 Ref 0 TAB Enoxaparin Inj (Lovenox Inj) 40 Mg/0.4 Ml Syr 40 MG SQ DAILY Start Aspirin after Lovenox is completed. Blood Clot Prevention # 10 Ref 0 SYRINGE Hydrocodone-Acetaminophen ([place]) 7.5-325 mg Tab 1-2 TAB PO Q4H PRN PAIN #60 Ref 0 TAB Continued Medications: Calcium Carbonate-Vitamin D (Calcium 500 + D) 500-125 Mg-Unit Tab 1 TAB PO BID TAB Multiple Vitamin (Multi Vitamin) 1 Tab Tab 1 TAB PO DAILY TAB Sulfamethoxazole-Trimethoprim (Sulfamethoxazole-Trimethoprim) 800-160 Mg Tab 1 TAB PO BID Infection #14 Ref 0 TAB Discontinued Medications: Tramadol (Tramadol) 50 Mg Tab 50 MG PO Q4H PRN PAIN Ref 0 TAB Yuly Marley December 22, 2016 14:43 Galileo Marvin MD December 27, 2016 15:30
[2016-12-22] MEDS ORDERED: SOD PHOSPHATE/SOD BIPHOSPHATE (ADULT) ENEMA 133ML RECTAL ONE (15:00)
--- NOTE | 2016-12-22 15:17 | PD.ORT.PN ---
Subjective Subjective Remarks pain well controlled. still pending BM Objective Vitals Vital Signs Date Time Temp Pulse Resp B/P Pulse Ox O2 Delivery O2 Flow Rate FiO2 12/22/16 12:00 97.5 77 18 117/51 93 12/22/16 08:00 97.4 67 18 122/50 94 12/22/16 04:00 97.5 65 17 102/50 92 12/22/16 00:00 98.2 63 17 105/53 92 12/21/16 21:06 80 119/83 12/21/16 19:40 92 21 12/21/16 19:00 98.2 72 18 92/50 94 12/21/16 16:00 97.7 69 18 101/50 95 I/O 12/21/16 12/21/16 12/21/16 12/22/16 12/22/16 12/22/16 07:00 15:00 23:00 07:00 15:00 23:00 Intake Total 920 ml 1943 ml 480 ml 480 ml Output Total 300 ml 500 ml 225 ml Balance 620 ml 1443 ml 255 ml 480 ml Intake Oral 120 ml 600 ml 480 ml 480 ml IV Total 800 ml 1343 ml Output Urine Total 300 ml 500 ml 225 ml # Voids 1 3 3 # Bowel Movements 0 0 0 0 Result Diagram: 12/22/16 0659 12/21/16 0537 Imaging Last 24 hours Impressions Hip and Pelvis X-Ray 12/20/16 1205 Signed Impressions: Service Date/Time: Tuesday, December 20, 2016 12:46 - CONCLUSION: Postop right hip arthroplasty. Zay Epstein MD Procedures Right JUAN C Objective Remarks The patient's dressings changed with scant serosanguineous drainage (same as yesterday). Incision well approximated with surgical clips intact. No redness or s/s of infection. mild ecchymosis EHL/TA/G intact. 2+ pedal pulse. Calf is soft and nontender. Minimal swelling. + SILT. Assessment & Plan Assessment and Plan POD #2: Right JUAN C 1. WBAT RLE 2. Lovenox followed by [facility] for DVT prophylaxis 3. Ice to the right hip PRN 4. Anticipatory discharge home with home health today after BM Gene Foster MD December 22, 2016 15:17
== END 2016-12-22 17:24 | disposition home health service (06) | DRG 469 ==
LOC: HSDI 12-20 06:37 → N06B 12-20 18:32
PROVIDERS: ADMIT Orthopaedic Surgery; ATTEND Orthopaedic Surgery
PROC: 0SR90JA Replacement of Right Hip Joint with Synthetic Substitute, Uncemented, Open Approach (ICD-10-PCS; principal; 2016-12-20 10:00)
DX: M16.11 Unilateral primary osteoarthritis, right hip (principal); G92 Toxic encephalopathy; D69.59 Other secondary thrombocytopenia; J44.9 Chronic obstructive pulmonary disease, unspecified; D62 Acute posthemorrhagic anemia; G47.33 Obstructive sleep apnea (adult) (pediatric); Z91.19 Patient's noncompliance with other medical treatment and regimen; T40.2X5A Adverse effect of other opioids, initial encounter; I95.2 Hypotension due to drugs; R73.9 Hyperglycemia, unspecified; Z87.891 Personal history of nicotine dependence
CPT/HCPCS: 73502; 76000; 80048; 82948; 83036; 84155; 85014; 85018; 85027; 86850; 86900; 86901; 94150; C1776; C9290; J0131; J0690; J1100; J1170; J1580; J1650; J2250; J2270; J2310; J2370; J2405; J2710; J3010; J3370; J7030; J7050; J7120